=== PATIENT | female | born 1970 | race Caucasian/White ===

== ENCOUNTER → 2016-12-11 | Outpatient (CLI) | payer BC, OTHER ==
[~2016-12-11] MED LIST: FUROSEMIDE 20 MG/2 ML VIAL (J1940) As Ordered ONE; LIDOCAINE 1% MDV 20ML VIAL As Ordered ONE
--- NOTE | 2016-12-11 15:01 | REP ---
NUCLEAR RENAL SCAN WITH FLOW, FUNCTION AND LASIX SCAN: 12/11/2016. Clinical history: Nuclear scan to evaluate differential function right versus left kidney. Chronic obstruction and staghorn calculus on the right. Nonobstructing stones on the left. Right renal stent. Technique: The patient received 8.4 mCi of technetium 99m Mag III with pre-Lasix flow and function imaging. Region of interest drawn and function determined by semi-automated method under 1/2 hour observation. 20 mg IV Lasix given by slow push with rescanning at 2-minute intervals. The exam was terminated at 23 minutes due to the patient's urgent need to void. Findings: The time of maximum activity on the left is 2 minutes, on the right 8 minutes. Time of one-half max on the left is 10.9 minutes, on the right side greater than 30 minutes. Split function on the pre Lasix images is 39.7% right, 60.3% left. There is some flattening of the pre-Lasix flow curves particularly the right. Perfusion is slightly asymmetric delayed on the right compared to the left. On the post Lasix images, there is a large volume of residual activity in the right renal fossa. T1/2 of Lasix is at 12.3 minutes left, 19.5 minutes right. Exam was terminated early because of her urgent need to void. Impression: 1. Some asymmetric poor flow and function of the right kidney with residual contrast in the collecting system. There is some improvement in function on that right side post Lasix, but still diminished. Signed by Bala Domingo MD 12/11/2016 05:20 P
== END ==
LOC: M RAD 09:32
PROVIDERS: ATTEND Urology
DX: N20.0 Calculus of kidney (principal); N11.1 Chronic obstructive pyelonephritis

== ENCOUNTER → 2018-08-27 | Outpatient (REF) | payer OTHER, BC ==
[2018-08-27 13:56] LABS: BASO # 0.1 10^3/uL (0.0-0.2); BASO % 0.5 % (0.0-1.0); EOS # 0.3 10^3/uL (0.0-0.50); EOS % 2.8 % (0.0-3.0); HEMATOCRIT 44.7 % (36.0-47.0); HEMOGLOBIN 14.7 g/dl (12.0-15.5); IMMATURE GRANULOCYTE % 0.4 % (0-3.0); LYMPH # 2.7 10^3/uL (1.5-4.5); LYMPH % 27.9 % (24.0-44.0); MEAN CORPUSCULAR HEMOGLOBIN 32.6 pg (27.0-33.0); MEAN CORPUSCULAR HGB CONC 32.9 g/dl (32.0-36.5); MEAN CORPUSCULAR VOLUME 99.1 fl (80.0-96.0); MONO # 1.1 10^3/uL (0.0-0.8); MONO % 11.4 % (0.0-5.0); NEUTROPHILS # 5.4 10^3/uL (1.8-7.7); PLATELET COUNT, AUTOMATED 258 10^3/uL (150-450); RED BLOOD COUNT 4.51 10^6/uL (4.00-5.40); RED CELL DISTRIBUTION WIDTH 12.8 % (11.5-14.5); WHITE BLOOD COUNT 9.5 10^3/uL (4.0-10.0)
[2018-08-27 14:32] LABS: ALBUMIN 4.3 GM/DL (3.2-5.2); ALBUMIN/GLOBULIN RATIO 1.39 (1.00-1.93); ALKALINE PHOSPHATASE 74 U/L (45-117); ALT/SGPT 22 U/L (12-78); ANION GAP 6 MEQ/L (8-16); AST/SGOT 16 U/L (7-37); BILIRUBIN,TOTAL 0.2 MG/DL (0.2-1.0); BLOOD UREA NITROGEN 14 MG/DL (7-18); CALCIUM LEVEL 9.4 MG/DL (8.5-10.1); CARBON DIOXIDE LEVEL 29 MEQ/L (21-32); CHLORIDE LEVEL 105 MEQ/L (98-107); CREATININE FOR GFR 0.77 MG/DL (0.55-1.30); GLOMERULAR FILTRATION RATE > 60.0 (>58); GLUCOSE, FASTING 74 MG/DL (70-100); POTASSIUM SERUM 4.3 MEQ/L (3.5-5.1); RHEUMATOID FACTOR QUANT < 10.0 IU/ML (<15.0); SODIUM LEVEL 140 MEQ/L (136-145); TOTAL PROTEIN 7.4 GM/DL (6.4-8.2)
[2018-08-27 14:49] LABS: ERYTHROCYTE SEDIMENTATION RATE 5 mm/hr (0-20)
[2018-08-28 14:49] LABS: ANTI DOUBLE STRAND-DNA AB 157 IU/mL (0-9); ANTINUCLEAR ANTIBODIES DIRECT Positive (Negative); RNP ANTIBODIES <0.2 AI (0.0-0.9); SJOGREN'S ANTI SS-A <0.2 AI (0.0-0.9); SJOGREN'S ANTI SS-B <0.2 AI (0.0-0.9); SMITH ANTIBODIES <0.2 AI (0.0-0.9)
== END ==
LOC: M LABNEURO 10:08
DX: R51 Headache (principal)